=== PATIENT | male | born 1955 | race Two or more races ===

== ENCOUNTER 2018-12-28 10:48 | Day surgery (SDC) | payer OTHER ==
[2018-12-28] MEDS ORDERED: LIDOCAINE 4% SOLUTION 50 ML BTL (12:25)
[2018-12-28] MEDS ORDERED: FENTAnyl 50 MCG/ML VIAL (13:30)
[2018-12-28] MEDS ORDERED: MIDAZOLAM 1 MG/ML 2 ML INJ ×2 (13:30)
== END 2018-12-28 14:00 | disposition home or self-care (01) ==
LOC: GIL 10:48
DX: K29.30 Chronic superficial gastritis without bleeding (principal)
CPT/HCPCS: 43239; 88305; 88312